=== PATIENT | female | born 1945 | race Caucasian/White ===

== ENCOUNTER 2017-10-14 08:25 | Outpatient (CLI) | payer MEDICARE, OTHER | END 2017-10-14 08:26 | disposition home or self-care (01) | LOC: BICMAMMO 08:25 | PROVIDERS: ATTEND Family Medicine | DX: Z12.31 Encounter for screening mammogram for malignant neoplasm of breast (principal); Z13.820 Encounter for screening for osteoporosis; M85.852 Other specified disorders of bone density and structure, left thigh; Z80.3 Family history of malignant neoplasm of breast | CPT/HCPCS: 77063; 77067; 77080 ==

== ENCOUNTER 2018-06-14 10:46 | Emergency (ER) | payer MEDICARE, OTHER ==
[2018-06-14] MEDS ORDERED: Adacel (T-DAP) 0.5 ML VIAL ONE (13:43)
--- NOTE | 2018-06-14 13:46 | CT ---
BRAIN CT WITHOUT IV CONTRAST: HISTORY: A 72-year-old female with history of a head injury following a fall, hitting back of head. FINDINGS: Focal left parietal scalp hematoma without associated skull fracture. Minimal atrophy and chronic wh ite matter ischemic change. No focal mass or midline shift. No intraaxial or extraaxial hemorrhage. Minimal sinus mucosal changes in the left maxillary sinus and right maxillary sinus. 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 The mastoids are clear. IMPRESSION: 1. No mass, bleed, or other significant acute intracranial process. 2. Left parietal scalp hematoma. 3. Mild sinus mucosal disease. 4. Left frontal sinus osteoma. POS: [facility]
--- NOTE | 2018-06-14 13:48 | CT ---
CERVICAL SPINE CT SCAN WITHOUT IV CONTRAST: HISTORY: A 72-year-old female with a history of neck pain following a head injury and fall. FINDINGS: There are bilateral thyroid nodules, the largest on the right side, measuring approximately 1.1 cm. There is some generalized spondylosis. Anterior cervical fusion changes are noted at C6-C7. There a ppears to be a vascular stent involving the left vertebral artery, at approximately the C5-C6 level. No evidence for acute fracture or facet dislocation. IMPRESSION: 1. No evidence for acute fracture or facet dislocation of the cervical spine. 2. Generalized spondylosis. 3. Anterior cervical fusion changes at C6-C7. 4. Left vertebral artery stent at approximately C5-C6. POS: [facility]
== END 2018-06-14 13:52 | disposition home or self-care (01) ==
LOC: ERS 10:46
DX: S00.03XA Contusion of scalp, initial encounter (principal); W01.0XXA Fall on same level from slipping, tripping and stumbling without subsequent striking against object, initial encounter
CPT/HCPCS: 70450; 72125; 90471; 90715

== ENCOUNTER 2019-10-16 09:59 | Outpatient (CLI) | payer MEDICARE, OTHER ==
--- NOTE | 2019-10-16 12:15 | BD ---
BONE DENSITOMETRY: Date: 10/16/2019 HISTORY: Postmenopausal screening. FINDINGS: Lumbar Spine: BMD (g/cm2) L1 0.817 T-Score: -1.6 L2 1.087 T-Score: 0.5 L3 1.221 T-Score: 1.2 L4 1.160 T-Score: 0.9 Total 1.078 T-Score: 0.3 Left Femoral Neck: 0.662 T-Score: -1.7 Total Femur: 0.769 T-Score: -1.4 IMPRESSION: 1. Bone mineral density of the lumbar spine is within normal range. 2. Bone mineral density of the femoral neck indicates osteopenia. 10 YEAR FRACTURE RISK: Major osteoporotic fracture: 12% Hip fracture: 2.3% POS: [facility]
--- NOTE | 2019-10-16 13:02 | MMO ---
Bilateral MAMMO Bilat Screen DDI+PAMELA. CLINICAL HISTORY: Patient is 73 years old and is seen for screening. The patient has the following family history of breast cancer: mother, at age 50, malignant (generic); sister, at age 54, malignant (generic) and maternal aunt, at age 54, malignant (generic). The patient has no personal history of cancer. The patient has a history of left Cyst Aspiration in 1995 - benign and left Excisional Biopsy in 1994 - benign. VIEWS: The views performed were: bilateral craniocaudal with tomosynthesis and bilateral mediolateral oblique with tomosynthesis. FILMS COMPARED: The present examination has been compared to prior imaging studies performed at [facility] on 05/21/2013, 09/04/2014, 10/01/2015 and 10/14/2017. This study has been interpreted with the assistance of computer-aided detection. MAMMOGRAM FINDINGS: There are scattered fibroglandular densities. There are stable benign appearing calcifications seen in both breasts. There are also vascular calcifications. There are no suspicious masses, suspicious calcifications, or new areas of architectural distortion. IMPRESSION: THERE IS NO MAMMOGRAPHIC EVIDENCE OF MALIGNANCY. A ROUTINE FOLLOW-UP MAMMOGRAM IN 1 YEAR IS RECOMMENDED. THE RESULTS OF THIS EXAM WERE SENT TO THE PATIENT. ACR BI-RADS Category 2 - Benign finding MAMMOGRAPHY NOTE: 1. A negative mammogram report should not delay a biopsy if a dominant of clinically suspicious mass is present. 2. Approximately 10% to 15% of breast cancers are not detected by mammography. 3. Adenosis and dense breasts may obscure an underlying neoplasm. Reported by: MARTHA WELLS MD Electonically Signed: [id number]
== END 2019-10-16 10:00 | disposition home or self-care (01) ==
LOC: BICMAMMO 09:59
PROVIDERS: ATTEND Family Medicine
DX: Z12.31 Encounter for screening mammogram for malignant neoplasm of breast (principal); Z13.820 Encounter for screening for osteoporosis; Z78.0 Asymptomatic menopausal state; M85.852 Other specified disorders of bone density and structure, left thigh; Z80.3 Family history of malignant neoplasm of breast; Z91.89 Other specified personal risk factors, not elsewhere classified
CPT/HCPCS: 77063; 77067; 77080

== ENCOUNTER 2020-01-15 12:30 | Outpatient (CLI) | payer MEDICARE, OTHER | END 2020-01-15 12:31 | disposition home or self-care (01) | LOC: ULT 12:30 | PROVIDERS: ATTEND Family Medicine | DX: R06.02 Shortness of breath (principal); I35.1 Nonrheumatic aortic (valve) insufficiency | CPT/HCPCS: 93306 ==

== ENCOUNTER 2020-07-22 12:17 | Inpatient (IN) | payer MEDICARE, OTHER ==
[2020-07-22] MEDS ORDERED: Aspirin Chewable 81 MG TAB ONE (12:39)
[2020-07-22 12:55] LABS: #Basophils 0.1 thou/uL (0.0-0.2); #Eosinphils 0.2 thou/uL (0.0-0.7); #Lymphocytes 2.9 thou/uL (1.20-3.40); #Monocytes 0.7 thou/uL (0.11-0.59); #Neutrophils 5.1 thou/uL (1.40-6.50); %Basophils 0.9 % (0.0-1.0); %Lymphocytes 32.7 % (21.0-51.0); %Monocytes 7.5 % (0.0-10.0); %Neutrophils 56.9 % (42.0-75.0); Hemoglobin 15.5 g/dL (12.0-16.0); Mean Corpuscular Hemoglobin 30.7 pg (27.0-31.0); Mean Corpuscular Volume 90.3 fL (78.0-98.0); Mean Platelet Volume 6.5 fL (7.4-10.4); Platelet Count 283 thou/uL (130-400); RBC Distribution Width 12.4 % (11.5-14.5); Red Blood Cell (RBC) Count 5.05 mill/uL (4.20-5.40); White Blood Cell (WBC) Count 8.9 thou/uL (4.8-10.8)
--- NOTE | 2020-07-22 12:57 | RAD ---
Exam: Chest one view HISTORY:Chest pressure. Chest heaviness. Palpitations Comparison: 11/16/2019 FINDINGS: Cardiac silhouette: Normal Aorta: Unremarkable Pulmonary vessels: Normal Costophrenic angles: Clear LUNGS: No masses or consolidation. Pneumothorax: None Osseous abnormalities: None Incidentals: Stent projects over the the left neck. Left cervical fusion hardware. IMPRESSION: No acute cardiopulmonary process.
[2020-07-22 13:03] LABS: INR-International Normal Ratio 0.9; Prothrombin Time 12.8 sec (12.0-14.7)
[2020-07-22 13:17] LABS: ALT (SGPT) 15 U/L (8-55); AST (SGOT) 15 U/L (5-34); Albumin 4.1 g/dL (3.4-4.8); Alkaline Phosphatase 55 U/L (40-110); Anion Gap 13 mmol/L (10-20); BUN (Urea Nitrogen) 13 mg/dL (9.8-20.1); Bilirubin, Total 0.6 mg/dL (0.2-1.2); Calc. Creatinine Clearance 0 mL/min (70-130); Calcium 9.3 mg/dL (7.8-10.44); Carbon Dioxide 26 mmol/L (23-31); Chloride 103 mmol/L (98-107); Estimated GFR-MDRD 80; Globulin 2.8 g/dL (2.4-3.5); Glucose 100 mg/dL (83-110); Potassium 3.7 mmol/L (3.5-5.1); Protein, Total 6.9 g/dL (6.0-8.3); Sodium 138 mmol/L (136-145)
[2020-07-22] MEDS ORDERED: Enoxaparin Sodium 80 MG/0.8 ML SYRINGE ONE (13:43)
[2020-07-22 14:16] LABS: Bilirubin Negative (Negative); Blood, Urine 1+ (Negative); Clarity Clear (Clear); Glucose, Urine (Dipstick) Normal (Negative); Ketone, Urine Negative (Negative); Leukocyte Negative Leu/uL (Negative); Nitrite Negative (Negative); Protein, Urine (Dipstick) Negative (Neg-Trace); Specific Gravity, Urine 1.006 (1.002-1.036); Squamous Epithelial None Seen HPF (0-3); Urobilinogen Normal mg/dL (Less than 2); WBC/HPF 0-3 HPF (0-3)
[2020-07-22 14:17] LABS: Bacteria/HPF Rare-Few HPF (None Seen)
[2020-07-22] MEDS ORDERED: Acetaminophen 325 MG TAB PO PRN (14:41)
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
[2020-07-22] MEDS ORDERED: Diltiazem 125 MG in Sodium Chloride 0.9% 100 ML IVPB SCH (16:00)
[2020-07-22] MEDS ORDERED: Diltiazem 125 MG/25 ML ONE (16:25)
[2020-07-22 18:03] LABS: Troponin I 0.014 ng/mL (< 0.028)
[2020-07-22] MEDS: rOPINIRole HCl 1 MG TAB PO SCH (19:48)
[2020-07-22 20:58] VITALS: BMI 26.2
[2020-07-22 21:38] LABS: Troponin I 0.011 ng/mL (< 0.028)
--- NOTE | 2020-07-22 22:40 | CON ---
DATE OF CONSULTATION: HISTORY OF PRESENT ILLNESS: Dorothy Osullivan is a 74-year-old white female patient, who was followed by Dr. Mcpherson. He first evaluated her in January 2020 when she was sent for followup of an echocardiogram that showed nomawrec-pb-[id number] aortic insufficiency with widened pulse pressure. She was asymptomatic at that time without any chest discomfort or shortness of breath. She has had some peripheral edema at times and her amlodipine dose has been reduced. Over the last 2 days, she has noted some exertional chest pressure, although is very vague about how long it lasts. Today, she had a very similar episode that lasted probably 2 hours and did not resolve, so she got to the emergency room. She also noted palpitations and very mild shortness of breath. She was found to be in atrial fibrillation, was given 10 mg of Cardizem IV, and her heart rate slowed to the 60s and 70s and she has not been given any other medication. PAST MEDICAL HISTORY: Hyperlipidemia, hypertension, aortic insufficiency. MEDICATIONS: When she was last seen in the office include: 1. Florastor 250 daily. 2. Melatonin 1 mg at bedtime. 3. KCl 10 mEq b.i.d. 4. Lisinopril 40 mg daily. 5. Amlodipine 5 mg daily. 6. Carvedilol 12.5 mg b.i.d. 7. Furosemide 40 mg daily. ALLERGIES: NONE. SOCIAL HISTORY: She has never smoked. She occasionally drinks. PHYSICAL EXAMINATION: VITAL SIGNS: Blood pressure 138/80, pulse of 90. HEENT: PERRL. NECK: Supple. CHEST: Clear. CARDIAC: S1 and S2 normal without any S3, S4, or murmurs. No diastolic murmur is heard. Carotid upstrokes normal without bruits. ABDOMEN: Normal bowel sounds without tenderness. EXTREMITIES: Reveal no clubbing, cyanosis, or edema. NEUROLOGIC: Grossly intact. LABORATORY DATA: EKG revealed atrial fibrillation with rapid ventricular response of 113 per minute. CBC is unremarkable. Sodium 138, potassium 3.7, chloride 103, carbon dioxide 26, BUN 13, creatinine 0.71. BNP 155.0. TSH is normal. Troponin x1 is normal. IMPRESSION: 1. New onset atrial fibrillation with fast ventricular response. 2. Lfxuuwlt-rl-ickdbd aortic insufficiency on echocardiogram in December 2019. 3. Hypertension. 4. Hypercholesterolemia. 5. Widened pulse pressure. PLAN: The patient will be treated with 1 mg/kg of Lovenox b.i.d. for stroke prophylaxis. I will place her on a low-dose Cardizem drip of 3 mg/minute. Adenosine Cardiolite will be ordered with her history of exertional chest pressure, although this may be related to her atrial fibrillation with poorly controlled rate. Echocardiogram will also be ordered. Further treatment will be depending upon the results of this test. Job ID: [id number]
[2020-07-22] MEDS: Enoxaparin Sodium 80 MG/0.8 ML SYRINGE SC SCH (22:49)
[2020-07-22] MEDS: Melatonin 3 MG TAB PO PRN (22:50)
[2020-07-22] MEDS ORDERED: Ondansetron PF 4 MG/2 ML Vial IVP SCH (23:59)
[2020-07-23 03:06] LABS: SARS-CoV-2 MS2 Positive; SARS-CoV-2 N Gene Negative; SARS-CoV-2 S Gene Negative; SARS-CoV-2 by NAA Not Detected (NotDetected); SARS-CoV-2 orf1ab Negative
[2020-07-23 04:46] LABS: #Basophils 0.1 thou/uL (0.0-0.2); #Eosinphils 0.1 thou/uL (0.0-0.7); #Monocytes 0.5 thou/uL (0.11-0.59); %Basophils 1.3 % (0.0-1.0); %Eosinophils 1.6 % (0.0-10.0); %Lymphocytes 34.4 % (21.0-51.0); %Monocytes 5.5 % (0.0-10.0); %Neutrophils 57.1 % (42.0-75.0); Hemoglobin 14.6 g/dL (12.0-16.0); Mean Corpuscular HGB CONC 34.1 g/dL (32.0-36.0); Mean Corpuscular Hemoglobin 31.1 pg (27.0-31.0); Mean Corpuscular Volume 91.3 fL (78.0-98.0); Mean Platelet Volume 6.7 fL (7.4-10.4); Platelet Count 255 thou/uL (130-400); RBC Distribution Width 12.4 % (11.5-14.5); White Blood Cell (WBC) Count 8.7 thou/uL (4.8-10.8)
[2020-07-23 05:06] LABS: Anion Gap 15 mmol/L (10-20); BUN (Urea Nitrogen) 17 mg/dL (9.8-20.1); Calc. Creatinine Clearance 92 mL/min (70-130); Carbon Dioxide 21 mmol/L (23-31); Chloride 107 mmol/L (98-107); Estimated GFR-MDRD Greater than 90; Glucose 111 mg/dL (83-110); Potassium 3.6 mmol/L (3.5-5.1); Sodium 139 mmol/L (136-145)
--- NOTE | 2020-07-23 08:42 | PDOC.HOSPP ---
- Subjective Encounter Date: 07/23/20 Encounter Time: 08:41 Subjective: No overnight events. Patient remains in atrial-fibrillation. HR well controlled on Cardizem drip. Patient endorses mild episodes of fluttering and chest discomfort. Deneis SOB, abdominal pain, N/V/D. Denies changes in vision, weakness, numbness. Chart and medications reviewed. - Objective Vital Signs & Weight: Vital Signs (12 hours) Temp Pulse Resp BP Pulse Ox 07/23/20 04:00 98.5 F 78 16 107/56 L 94 L 07/23/20 00:00 98.4 F 84 20 111/56 L 97 Weight Weight 167 lb 3.2 oz I&O: 07/22/20 07/23/20 07/24/20 06:59 06:59 06:59 Intake Total 522 Output Total 250 Balance 272 Result Diagrams: 07/23/20 04:07 07/23/20 04:07 Hospitalist ROS - Review of Systems Constitutional: denies: fever, chills, sweats, weakness, malaise, other Eyes: denies: vision change ENT: denies: nose congestion, throat pain Respiratory: denies: cough, dry, shortness of breath, sputum, wheezing Cardiovascular: reports: palpitations. denies: chest pain, orthopnea, edema, light headedness Gastrointestinal: denies: nausea, vomiting, abdominal pain, diarrhea, constipation, melena, hematochezia Genitourinary: denies: dysuria, hematuria Skin: denies: rash, lesions Neurological: denies: weakness, numbness - Medication Medications: Active Medications Generic Name Dose Route Start Last Admin Trade Name Freq PRN Reason Stop Dose Admin Enoxaparin Sodium 80 mg 07/22/20 21:00 07/22/20 22:49 Enoxaparin Sodium 80 Mg/0.8 Ml Syringe SC 80 mg 0900,2100 JEANNE Administration Melatonin 3 mg 07/22/20 22:32 07/22/20 22:50 Melatonin 3 Mg Tab PO 3 mg HS PRN Administration Insomnia Ropinirole HCl 1 mg 07/22/20 21:00 07/22/20 19:48 Ropinirole Hcl 1 Mg Tab PO 1 mg HS JEANNE Administration - Exam General Appearance: NAD, awake alert Eye: PERRL, anicteric sclera ENT: normocephalic atraumatic, no oropharyngeal lesions, moist mucosa Neck: supple, symmetric, no JVD, no thyromegaly, no lymphadenopathy, no carotid bruit Heart - other findings: irregularlly irregular, diastolic murmur present Respiratory: CTAB, no wheezes, no rales, no ronchi, normal chest expansion, no tachypnea, normal percussion Gastrointestinal: soft, non-tender, non-distended, normal bowel sounds, no palpable masses, no hepatomegaly, no splenomegaly, no bruit Extremities: no cyanosis, no clubbing, no edema Skin: normal turgor, no lesions, no rashes Neurological: normal sensation to touch, no weakness, no focal deficits Musculoskeletal: normal tone, normal strength, no muscle wasting Psychiatric: normal affect, normal behavior, A&O x 3 Hosp A/P - Plan 74F with PMHx of CHF, HTN, aortic insufficiency presented to the ER with palpitations and chest pain found to have new-onset atrial-fibrillation. New-onset atrial fibrillation -Presented in a-fib w/ RVR, now controlled on cardizem drip -A/C with 1mg/kg Lovenox -TSH wnl -Cards following Chest pain -P/w mild chest discomfort associated with palpitations -Troponins 0.013, 0.014, 0.011 -Likely 2/2 to atrial fib, however will pursue stress test given pt's risk factors -Currently chest-pain free -ASA, stress test, echo -Cards following Aortic insufficiency -Hx of moderate to severe aortic insufficiency with mild aortic root dilation on echo from December 2019 -Will repeat echocardiogram -Cards following HTN -Hold home lisinopril, amlodipine, carvedilol, lasix while on cardizem drip. Pt normotensive. HLD -Will check lipid panel DVT Prophylaxis: Therapeutic Lovenox FULL CODE Case discussed with Dr. Horvath who is in agreement with above.
[2020-07-23] MEDS ORDERED: Aspirin 325 mg Enteric Coated Tablet PO SCH (09:00)
[2020-07-23] MEDS ORDERED: FLU VACC QS2020-21(65YR UP)/PF 240 MCG/0.7 ML SYRINGE IM ONE (09:00)
[2020-07-23] MEDS: Enoxaparin Sodium 80 MG/0.8 ML SYRINGE SC SCH ×2 (09:02→20:43)
--- NOTE | 2020-07-23 09:26 | PRG ---
DATE OF SERVICE: 07/23/2020 SUBJECTIVE: Ms. Osullivan is feeling well now. No chest pain or pressure. She said yesterday she had the onset of a chest tightness. Her Apple watch told her heart rate was 150. She came to the hospital. She was in atrial fibrillation with a rapid rate. The patient did feel a pressure in her chest with that episode. OBJECTIVE: VITAL SIGNS: Her blood pressure today 107/56; pulse 78 and irregular, she is in atrial fibrillation. LUNGS: Clear. CARDIAC: Irregularly irregular. ABDOMEN: Soft and nontender. EXTREMITIES: No edema. ASSESSMENT: 1. Atrial fibrillation, newly diagnosed, abrupt onset. 2. Fkyyknxt-tb-cbbiqq aortic insufficiency. 3. Evidence of heart failure, diastolic based on increased BNP. PLAN: 1. She is scheduled for stress testing today. 2. We will start Multaq this evening. 3. If she is still in fibrillation tomorrow, we will proceed with cardioversion. Job ID: [id number]
[2020-07-23] MEDS ORDERED: ADENOSINE 60 MG/20 ML VIAL ONE (10:12)
[2020-07-23 11:56] LABS: Cardiac Risk 4.3 (Less than 4.5)
--- NOTE | 2020-07-23 13:50 | NM ---
EXAM: CARDIAC SPECT HISTORY: Atrial fibrillation, hypertension, dyslipidemia, CHF TECHNIQUE: A myocardial perfusion scan was performed using the single isotope 1 day protocol with daisy hnetium 99m sestamibi. [10 mCi] was injected intravenously for the rest exam followed by 30 mCi for the stress study. Pharmacologic stress with adenosine was monitored and interpreted by Dr. Alcantara FINDINGS: Homogeneous tracer distribution is seen in the myocardial segments on stress and rest image s without fixed or reversible defects. Gated SPECT LVEF: 55% Wall motion exam: Normal IMPRESSION: Normal myocardial perfusion scan
[2020-07-23] MEDS: Amiodarone 200 MG TAB PO SCH ×2 (14:07→20:43)
[2020-07-23] MEDS ORDERED: Dronedarone HCl 400 MG TAB PO SCH (17:00)
[2020-07-23] MEDS: rOPINIRole HCl 1 MG TAB PO SCH (20:43)
[2020-07-23] MEDS: Melatonin 3 MG TAB PO PRN (20:46)
[2020-07-24 04:28] LABS: #Basophils 0.1 thou/uL (0.0-0.2); #Eosinphils 0.2 thou/uL (0.0-0.7); #Lymphocytes 2.7 thou/uL (1.20-3.40); #Monocytes 0.4 thou/uL (0.11-0.59); %Eosinophils 2.4 % (0.0-10.0); %Lymphocytes 42.4 % (21.0-51.0); %Monocytes 6.9 % (0.0-10.0); %Neutrophils 47.4 % (42.0-75.0); Hemoglobin 13.9 g/dL (12.0-16.0); Mean Corpuscular HGB CONC 33.4 g/dL (32.0-36.0); Mean Corpuscular Hemoglobin 30.8 pg (27.0-31.0); Mean Corpuscular Volume 92.3 fL (78.0-98.0); Mean Platelet Volume 6.7 fL (7.4-10.4); Platelet Count 234 thou/uL (130-400); RBC Distribution Width 12.4 % (11.5-14.5); White Blood Cell (WBC) Count 6.3 thou/uL (4.8-10.8)
[2020-07-24 04:42] LABS: Anion Gap 11 mmol/L (10-20); BUN (Urea Nitrogen) 20 mg/dL (9.8-20.1); Calc. Creatinine Clearance 86 mL/min (70-130); Calcium 8.6 mg/dL (7.8-10.44); Carbon Dioxide 26 mmol/L (23-31); Chloride 106 mmol/L (98-107); Estimated GFR-MDRD 83; Glucose 114 mg/dL (83-110); Potassium 3.4 mmol/L (3.5-5.1); Sodium 140 mmol/L (136-145)
[2020-07-24] MEDS ORDERED: Aspirin 81 mg Enteric Coated Tablet PO SCH (09:00)
[2020-07-24] MEDS: Enoxaparin Sodium 80 MG/0.8 ML SYRINGE SC SCH (10:53)
[2020-07-24] MEDS: Amiodarone 200 MG TAB PO SCH ×2 (10:53→15:34)
[2020-07-24] MEDS ORDERED: Non-Formulary Medication 1 EACH PO PRN (11:06)
[2020-07-24] MEDS ORDERED: Ondansetron HCl/PF 4 MG/2 ML Vial IVP PRN (11:15)
[2020-07-24] MEDS ORDERED: Promethazine HCl 25 MG/ML VIAL IM/IV PRN (11:15)
--- NOTE | 2020-07-24 11:53 | PDOC.HOSPP ---
- Subjective Encounter Date: 07/24/20 Subjective: Overnight patient continued in a-fib. Taken for NORA with cardioversion this am. Chart and medications reviewed. - Objective Vital Signs & Weight: Vital Signs (12 hours) Temp Pulse Resp BP Pulse Ox 07/24/20 10:47 97.6 F 59 L 19 145/62 H 97 07/24/20 08:02 98.7 F 85 20 124/67 95 07/24/20 07:52 98.2 F 75 19 125/60 96 07/24/20 05:00 98.5 F 74 18 129/62 Weight Weight 167 lb 3.2 oz I&O: 07/23/20 07/24/20 07/25/20 06:59 06:59 06:59 Intake Total 522 1220 Output Total 250 200 Balance 272 1020 Result Diagrams: 07/24/20 03:51 07/24/20 03:51 Hospitalist ROS - Review of Systems Constitutional: denies: fever, chills, sweats Eyes: denies: vision change ENT: denies: nose congestion, throat pain Respiratory: denies: cough, shortness of breath Cardiovascular: denies: chest pain, palpitations, orthopnea, light headedness Gastrointestinal: denies: nausea, vomiting, abdominal pain, diarrhea, hematochezia Genitourinary: denies: dysuria Skin: denies: rash, lesions Neurological: denies: weakness, numbness - Medication Medications: Active Medications Generic Name Dose Route Start Last Admin Trade Name Freq PRN Reason Stop Dose Admin Acetaminophen 650 mg 07/22/20 14:41 07/23/20 14:07 Acetaminophen 325 Mg Tab PO 650 mg Q4H PRN Administration Headache/Fever/Mild Pain (1-3) Amiodarone HCl 400 mg 07/23/20 15:00 07/24/20 10:53 Amiodarone 200 Mg Tab PO 400 mg TID JEANNE Administration Aspirin 81 mg 07/24/20 09:00 07/24/20 10:53 Aspirin 81 Mg Enteric Coated Tablet PO 81 mg DAILY JEANNE Administration Enoxaparin Sodium 80 mg 07/22/20 21:00 07/24/20 10:53 Enoxaparin Sodium 80 Mg/0.8 Ml Syringe SC 80 mg 0900,2100 JEANNE Administration Melatonin 3 mg 07/22/20 22:32 07/23/20 20:46 Melatonin 3 Mg Tab PO 3 mg HS PRN Administration Insomnia Ropinirole HCl 1 mg 07/22/20 21:00 07/23/20 20:43 Ropinirole Hcl 1 Mg Tab PO 1 mg HS JEANNE Administration - Exam General Appearance: NAD, awake alert Eye: PERRL, anicteric sclera ENT: normocephalic atraumatic, no oropharyngeal lesions, moist mucosa Neck: supple, symmetric, no JVD, no thyromegaly, no lymphadenopathy, no carotid bruit Heart: RRR, no murmur, no gallops, no rubs, normal peripheral pulses Respiratory: CTAB, no wheezes, no rales, no ronchi, normal chest expansion, no tachypnea, normal percussion Gastrointestinal: soft, non-tender, non-distended, normal bowel sounds, no palpable masses, no hepatomegaly, no splenomegaly, no bruit Extremities: no cyanosis, no clubbing, no edema Skin: normal turgor, no lesions, no rashes Neurological: normal sensation to touch, no weakness, no focal deficits, no new deficit Musculoskeletal: normal tone, normal strength, no muscle wasting Psychiatric: normal affect, normal behavior, A&O x 3 Hosp A/P - Plan 74F with PMHx of CHF, HTN, aortic insufficiency presented to the ER with palpitations and chest pain found to have new-onset atrial-fibrillation. Patient taken for cardioversion today. New-onset atrial fibrillation -Presented in a-fib w/ RVR, rate controlled on cardizem drip -A/C with 1mg/kg Lovenox -TSH wnl -Taken for cardioversion 07/24 -Cards following Chest pain -P/w mild chest discomfort associated with palpitations -Troponins 0.013, 0.014, 0.011 -Likely 2/2 to atrial fib,stress test wnl -Echo EF 55-60% -Currently chest-pain free -ASA -Cards following Aortic insufficiency -Hx of moderate to severe aortic insufficiency with mild aortic root dilation on echo from December 2019 -Echo- severe aortic insufficiency -Cards following HTN -Hold home lisinopril, amlodipine, carvedilol, lasix while on cardizem drip. Pt normotensive. HLD -Will check lipid panel DVT Prophylaxis: Therapeutic Lovenox FULL CODE Case discussed with Dr. Horvath who is in agreement with above.
[2020-07-24 17:32] VITALS: TEMP 98.2
[2020-07-24] MEDS ORDERED: Amlodipine 5 MG TAB PO SCH (18:45)
[2020-07-24] MEDS ORDERED: Apixaban 5 MG TAB PO SCH (19:15)
--- NOTE | 2020-07-24 19:32 | OP ---
DATE OF PROCEDURE: 07/24/2020 PROCEDURE PERFORMED: Transesophageal echocardiogram. INDICATION: A 74-year-old woman with aortic regurgitation. DESCRIPTION OF PROCEDURE: The patient was taken to the PACU. The patient was sedated by Anesthesiology. A transesophageal probe was placed into the distal esophagus and stomach. Echocardiographic images were obtained. The transesophageal probe was removed. FINDINGS: 1. Normal left ventricular systolic function. 2. Normal mitral and aortic valves. 3. Taxtenbd-eo-hccscf aortic regurgitation. 4. Mild mitral regurgitation. 5. Mild tricuspid regurgitation. 6. No thrombus is noted in the left atrial or left atrial appendage. 7. Atherosclerotic debris in the descending aorta. IMPRESSION: Jxonexfe-uj-zvgppn aortic regurgitation with no formed thrombus in the left atrial or left atrial appendage. Job ID: [id number]
[2020-07-24] MEDS: rOPINIRole HCl 1 MG TAB PO SCH (19:44)
[2020-07-24 19:46] VITALS: BP 159/70
[2020-07-24] MEDS ORDERED: Amiodarone 200 MG TAB PO SCH ×2 (20:00→21:00)
[2020-07-24] MEDS ORDERED: Lisinopril 20 MG TAB PO SCH (21:00)
--- NOTE | 2020-07-24 21:59 | PDOC.DS.DS ---
Provider - Provider Date of Admission: 07/22/20 13:47 Date of Discharge: 07/24/20 Admitting Provider: Jonathan Horvath MD Consultations: Cardiology Primary Care Physician: Kamlesh Mclean MD Course - Hospital Course Hospital Course: HISTORY OF PRESENT ILLNESS ON ADMISSION: Patient is a 74-year-old female with past medical history significant for CHF and hypertension. She presents to the ER today after feeling heaviness in her chest and fluttering. The patient really noticed this fluttering today but states over the past 4 days she has felt a little more rundown and states that the fluttering and heaviness have been happening intermittently since that time. Her heart rate today on her watch showed as high as 150. They put up the [place] tree 4 days ago she states that she "felt different" at that time. States she has had a sore throat and frequent urination since that time also. Denies fever, shortness of breath, contact with sick persons, orthopnea. Patient states that she had ankle swelling recently and her rat breeder decreased her Norvasc and increased her carvedilol which helped resolve that. BRIEF HOSPITAL COURSE: Ms. Osullivan is a 74 year-old female with a past medical history of HTN, HLD, CHF, aortic insufficiency who presented to the ER on 07/22/2020 for chest pain associated with palpitations. Patient was found to be in atrial fibrillation with rapid ventricular rate and received IV cardizem. Patient was anticoagulated with therapeutic lovenox. Cardiology was consulted who placed the patient on a Cardizem drip and her rate was well controlled during the rest of the admission. Troponin level 0.013, 0.014, and 0.011. Patient underwent a cardiac stress test which showed an EF of 55% with no areas of ischemia. Echocardiogram showed severe aortic insufficiency also with an EF of 55-60%. Patient was taken for a NORA on 07/24/2020 which showed no evidence of thrombus and pt was subsequently cardioverted to NSR successfully. Patient tolerated procedure well with no comp lications. Patient remained in NSR on telemetry review. Dr. Mcpherson of cardiology determined the patient to be medically safe for discharge home and medicine team in agreement. Patient was discharged on her home medications and started on Eliquis 5 mg BID, and atorvastatin 40 mg daily which was sent into her pharmacy. I discussed the risks and benefits of anticoagulation with the patient including serious, life-threatening adverse bleeding events, and stroke. Patient has a follow up appointment scheduled with Dr. Mcpherson of cardiology in two weeks. She will also need to follow up with her primary care provider in one week. Patient was instructed to return to the ER should she develop any new or worsening symptoms. Pertinent Studies: EXAM: CARDIAC SPECT HISTORY: Atrial fibrillation, hypertension, dyslipidemia, CHF TECHNIQUE: A myocardial perfusion scan was performed using the single isotope 1 day protocol with technetium 99m sestamibi. [10 mCi] was injected intravenously for the rest exam followed by 30 mCi for the stress study. Pharmacologic stress with adenosine was monitored and interpreted by Dr. Alcantara FINDINGS: Homogeneous tracer distribution is seen in the myocardial segments on stress and rest images without fixed or reversible defects. Gated SPECT LVEF: 55% Wall motion exam: Normal IMPRESSION: Normal myocardial perfusion scan Resuscitation Status: 07/22/20 14:41 Resuscitation Status Routine Co-Sign Provider: Resuscitation Status: FULL: Full Resuscitation Discussed with: pt and Additional comments: DPOA: Cortez Samuel" Abran- - Labs Lab Results: 07/24/20 03:51 07/24/20 03:51 Abnormal Lab Results - Last 48 hrs 07/23/20 04:07: Carbon Dioxide 21 L 07/23/20 04:07: MCH 31.1 H, MPV 6.7 L, Basophils % 1.3 H 07/23/20 04:07: Cholesterol 220 H 07/24/20 03:51: Potassium 3.4 L 07/24/20 03:51: MPV 6.7 L - Physical Exam Vitals: Vital Signs (12 hours) Temp Pulse Resp BP BP Pulse Ox 07/24/20 19:45 65 159/70 H 07/24/20 19:44 159/70 H 07/24/20 17:32 98.2 F 68 17 153/74 H 98 07/24/20 10:47 97.6 F 59 L 19 145/62 H 97 Weight Weight 167 lb 3.2 oz Physical Exam: The patient was seen and examined on the day of discharge. General Appearance: NAD, awake alert Eye: PERRL, anicteric sclera ENT: normocephalic atraumatic, no oropharyngeal lesions, moist mucosa Neck: supple, symmetric, no JVD, no thyromegaly, no lymphadenopathy, no carotid bruit Heart - other findings: irregularlly irregular, diastolic murmur present Respiratory: CTAB, no wheezes, no rales, no ronchi, normal chest expansion, no tachypnea, normal percussion Gastrointestinal: soft, non-tender, non-distended, normal bowel sounds, no palpable masses, no hepatomegaly, no splenomegaly, no bruit Extremities: no cyanosis, no clubbing, no edema Skin: normal turgor, no lesions, no rashes Neurological: normal sensation to touch, no weakness, no focal deficits Musculoskeletal: normal tone, normal strength, no muscle wasting Psychiatric: normal affect, normal behavior, A&O x 3 Problem - Discharge Plan Plan of Treatment: 74F with PMHx of CHF, HTN, aortic insufficiency presented to the ER with palpitations and chest pain found to have new-onset atrial-fibrillation. Patient underwent successful cardioversion on 07/24/2020 and was discharged home on Eliquis. New-onset atrial fibrillation -Presented in a-fib w/ RVR, rate controlled on cardizem drip -A/C with 1mg/kg Lovenox, now discharged on Eliquis 5 mg BID -TSH wnl -Cardioversion 07/24 successful -Continue home beta heike -Start Eliquis 5 mg BID -Appointment with Dr. Mcpherson of cardiology in two weeks Chest pain -P/w mild chest discomfort associated with palpitations -Troponins 0.013, 0.014, 0.011 -Likely 2/2 to atrial fib -Stress test negative -Continue baby aspirin -Resolved -Follow up with Dr. Mcpherson in two weeks Aortic insufficiency -Hx of moderate to severe aortic insufficiency with mild aortic root dilation on echo from December 2019 -Echo- severe aortic insufficiency -Asymptomatic at this time -Follow up with cardiology HTN -May continue home blood pressure medications -Follow up with Dr. Mcpherson and PCP HLD -Cholesterol mildly elevated, discharged on atorvastatin 40 mg which was sent into pharmacy -Follow up with Dr. Mcpherson and PCP Patient determined to be medically ready for discharge home by Dr. Mcpherson of Cardiology and hospital medicine team. Plan - Discharge Medications Prescriptions: Atorvastatin Calcium 40 mg PO DAILY 30 Days #30 tablet Apixaban [Eliquis] 5 mg PO BID 30 Days #30 tab Home Medications: Medication Instructions Recorded Confirmed Type Amlodipine [Norvasc] 5 mg PO DAILY 07/22/20 07/22/20 History Carvedilol [Coreg] 12.5 mg PO BID 07/22/20 07/22/20 History Furosemide [Lasix] 40 mg PO DAILY 07/22/20 07/22/20 History Lisinopril [Zestril] 40 mg PO DAILY 07/22/20 07/22/20 History Potassium Chloride [Klor-Con 10] 10 meq PO BID 07/22/20 07/22/20 History rOPINIRole HCl [Ropinirole HCl] 1 mg PO HS 07/22/20 07/22/20 History Amlodipine [Norvasc] 5 mg PO DAILY tab 07/24/20 Rx Apixaban [Eliquis] 5 mg PO BID 30 Days #30 tab 07/24/20 Rx Atorvastatin Calcium 40 mg PO DAILY 30 Days #30 tablet 07/24/20 Rx Carvedilol [Coreg] 12.5 mg PO BID-WM tab 07/24/20 Rx Lisinopril [Zestril] 20 mg PO BID tab 07/24/20 Rx rOPINIRole HCl [Requip] 1 mg PO HS tab 07/24/20 Rx Allergies: No Known Allergies Allergy (Verified 07/22/20 21:28) - Discharge Instructions Discharge Instructions:: PLEASE RETURN IMMEDIATELY TO THE EMERGENCY ROOM OR CALL 911 IF YOU DEVELOP ANY NEW OR CONCERNING SYMPTOMS INCLUDING BUT NOT LIMITED TO CHEST PAIN, SHORTNESS OF BREATH, WEAKNESS OR NUMBNESS. IF YOU ARE DIZZY, LIGHTHEADED, OR HAVE CHANGES IN YOUR VISION PLEASE ALSO GO TO THE EMERGENCY ROOM. You will need to follow up with cardiology in two weeks, or sooner should you have any concerns. Please schedule an appointment. You will also need to follow up with your primary care provider in one week. You were prescribed a new medication, Eliquis. Please take this twice daily. DO NOT stop taking this medication without first talking to your rat breeder. Please present to the emergency room if you have any concerns for bleeding. Activity:: Activity as Tolerated Nourishment:: Heart Healthy Diet - Follow up Plan Referrals: Kamlesh Mclean Chi, MD [Primary Care Provider] - Nas Mcpherson MD [Active] - 14 Days Disposition: HOME Quality - Care Measures CORE MEASURES:: N/A
[2020-07-25] MEDS ORDERED: Carvedilol 25 MG TAB PO SCH ×2 (08:00)
[2020-07-25] MEDS ORDERED: Apixaban 5 MG TAB PO SCH (09:00)
[2020-07-25] MEDS ORDERED: Amlodipine 5 MG TAB PO SCH (09:00)
== END 2020-07-24 20:20 | disposition home or self-care (01) | DRG 309 ==
LOC: ERS 12:17 → ERHOLD 13:47 → 2NO 20:21
PROVIDERS: ADMIT Internal Medicine; ATTEND Internal Medicine
PROC: B24BZZ4 Ultrasonography of Heart with Aorta, Transesophageal (ICD-10-PCS; principal; 2020-07-24)
PROC: 5A2204Z Restoration of Cardiac Rhythm, Single (ICD-10-PCS; 2020-07-24)
DX: I48.91 Unspecified atrial fibrillation (principal); I50.32 Chronic diastolic (congestive) heart failure; Z20.828 Contact with and (suspected) exposure to other viral communicable diseases; Z23 Encounter for immunization; I11.0 Hypertensive heart disease with heart failure; R35.0 Frequency of micturition; E78.5 Hyperlipidemia, unspecified; E78.00 Pure hypercholesterolemia, unspecified; I08.3 Combined rheumatic disorders of mitral, aortic and tricuspid valves; G25.81 Restless legs syndrome; Z90.49 Acquired absence of other specified parts of digestive tract; Z79.82 Long term (current) use of aspirin; Z79.899 Other long term (current) drug therapy
CPT/HCPCS: 36415; 71045; 78452; 80048; 80053; 80061; 81003; 81015; 83880; 84443; 84484; 85025; 85610; 85730; 87635; 92960; 93017; 93306; 93312; 96365; 96366; 96372; 96376; A9500; J0153; J1650; J2405; J3490; U0003

== ENCOUNTER 2021-11-27 10:52 | Outpatient (CLI) | payer MEDICARE, OTHER | END 2021-11-27 10:53 | disposition home or self-care (01) | LOC: BICMAMMO 10:52 | PROVIDERS: ATTEND Family Medicine | DX: Z12.31 Encounter for screening mammogram for malignant neoplasm of breast (principal); Z13.820 Encounter for screening for osteoporosis; M85.89 Other specified disorders of bone density and structure, multiple sites; Z78.0 Asymptomatic menopausal state; Z80.3 Family history of malignant neoplasm of breast; Z91.89 Other specified personal risk factors, not elsewhere classified | CPT/HCPCS: 77063; 77067; 77080 ==

== ENCOUNTER 2022-03-03 14:28 | Outpatient (CLI) | payer MEDICARE, OTHER | END 2022-03-03 14:29 | disposition home or self-care (01) | LOC: SCSRAD 14:28 | PROVIDERS: ATTEND Family Medicine | DX: R60.0 Localized edema (principal); M77.51 Other enthesopathy of right foot and ankle ==

== ENCOUNTER 2022-03-22 11:33 | Outpatient (CLI) | payer MEDICARE, OTHER | END 2022-03-22 11:34 | disposition home or self-care (01) | LOC: SCSMRI 11:33 | PROVIDERS: ATTEND Family Medicine | DX: M79.671 Pain in right foot (principal); S92.252A Displaced fracture of navicular [scaphoid] of left foot, initial encounter for closed fracture; R60.0 Localized edema ==

== ENCOUNTER 2023-04-01 10:06 | Emergency (ER) | payer MEDICARE, OTHER ==
[2023-04-01 10:32] LABS: #Eosinphils 0.1 thou/uL (0.0-0.7); #Monocytes 0.4 thou/uL (0.11-0.59); #Neutrophils 3.6 thou/uL (1.40-6.50); %Basophils 0.5 % (0.0-1.0); %Eosinophils 1.7 % (0.0-10.0); %Lymphocytes 28.5 % (21.0-51.0); %Monocytes 6.7 % (0.0-10.0); %Neutrophils 62.4 % (42.0-75.0); Hematocrit 41.5 % (36.0-47.0); Hemoglobin 13.9 g/dL (12.0-16.0); Mean Corpuscular HGB CONC 33.5 g/dL (32.0-36.0); Mean Corpuscular Hemoglobin 29.4 pg (27.0-31.0); Mean Corpuscular Volume 87.9 fl (78.0-98.0); Mean Platelet Volume 9.4 fL (7.4-10.4); Platelet Count 238 10x3/uL (130-400); RBC Distribution Width 13.8 % (11.5-14.5); Red Blood Cell (RBC) Count 4.72 mill/uL (4.20-5.40); White Blood Cell (WBC) Count 5.8 10x3/uL (4.8-10.8)
[2023-04-01 10:50] LABS: ALT (SGPT) 18 U/L (8-55); AST (SGOT) 20 U/L (5-34); Albumin 3.8 g/dL (3.4-4.8); Alkaline Phosphatase 68 U/L (40-110); Anion Gap 12 mmol/L (10-20); BUN (Urea Nitrogen) 11 mg/dL (9.8-20.1); Bilirubin, Total 0.9 mg/dL (0.2-1.2); Calc. Creatinine Clearance 0 mL/min (70-130); Carbon Dioxide 20 mmol/L (23-31); Chloride 108 mmol/L (98-107); Estimated GFR 73; Globulin 2.5 g/dL (2.4-3.5); Glucose 159 mg/dL (83-110); Potassium 3.4 mmol/L (3.5-5.1); Protein, Total 6.3 g/dL (5.8-8.1); Sodium 137 mmol/L (136-145)
[2023-04-01 11:42] LABS: Troponin I Less than 0.010 ng/mL (< 0.028)
== END 2023-04-01 12:15 | disposition home or self-care (01) ==
LOC: ERS 10:06
DX: R55 Syncope and collapse (principal); I10 Essential (primary) hypertension
CPT/HCPCS: 80053; 84484; 85025; 93005

== ENCOUNTER 2024-01-26 10:48 | Outpatient (CLI) | payer MEDICARE, OTHER | END 2024-01-26 10:49 | disposition home or self-care (01) | LOC: MRI 10:48 | PROVIDERS: ATTEND Family Medicine | DX: M47.26 Other spondylosis with radiculopathy, lumbar region (principal); M47.815 Spondylosis without myelopathy or radiculopathy, thoracolumbar region; M47.817 Spondylosis without myelopathy or radiculopathy, lumbosacral region; M41.9 Scoliosis, unspecified | CPT/HCPCS: 72148 ==

== ENCOUNTER 2024-02-04 09:04 | Emergency (ER) | payer MEDICARE, OTHER ==
[2024-02-04] MEDS ORDERED: Morphine 4 MG/ML VIAL ONE (09:27)
== END 2024-02-04 12:19 | disposition home or self-care (01) ==
LOC: ERS 09:04
DX: S62.616A Displaced fracture of proximal phalanx of right little finger, initial encounter for closed fracture (principal); S00.12XA Contusion of left eyelid and periocular area, initial encounter; S60.221A Contusion of right hand, initial encounter; S00.83XA Contusion of other part of head, initial encounter; I10 Essential (primary) hypertension; I48.91 Unspecified atrial fibrillation; W18.09XA Striking against other object with subsequent fall, initial encounter; Y93.01 Activity, walking, marching and hiking
CPT/HCPCS: 70450; 70486; 73130; J2270

== ENCOUNTER 2025-05-28 08:00 | Outpatient (CLI) | payer MEDICARE, OTHER | END 2025-05-28 12:55 | disposition home or self-care (01) | LOC: SJX 08:00 | PROVIDERS: ATTEND Family Medicine | DX: H53.2 Diplopia (principal) | CPT/HCPCS: 70543; 70553; 76376 ==